=== PATIENT | male | born 1955 ===

== ENCOUNTER 2018-02-03 18:47 | Emergency (ER) | payer SELFPAY ==
[2018-02-03 19:07] VITALS: O2SAT 99
--- NOTE | 2018-02-03 20:21 | C.PDOC ---
History Of Present Illness 62 y/o male presents to the ER complaining of left anterior rib pain which began after he slipped in bathtub and hit his left rib on the toilet bowl. Patient denies having abdominal pain, SOB, head injury, and LOC. - HPI Time Seen by Provider: 02/03/18 19:18 Chief Complaint (Nursing): Trauma History Per: Patient History/Exam Limitations: no limitations Onset/Duration Of Symptoms: Hrs Severity: Moderate Past Medical History Reviewed: Historical Data, Nursing Documentation, Vital Signs Vital Signs: Last Vital Signs Temp 97.6 F 02/03/18 20:32 Pulse 70 02/03/18 20:32 Resp 18 02/03/18 20:32 BP 136/75 02/03/18 20:32 Pulse Ox 99 02/03/18 21:41 - Medical History PMH: HTN Other Surgeries: Hx of surgeries Family History: States: No Known Family Hx - Social History Hx Alcohol Use: No Hx Substance Use: No - Immunization History Hx Tetanus Toxoid Vaccination: No Hx Influenza Vaccination: No Hx Pneumococcal Vaccination: No Review Of Systems Except As Marked, All Systems Reviewed And Found Negative. Cardiovascular: Positive for: Other (left rib pain) Respiratory: Negative for: Shortness of Breath Gastrointestinal: Negative for: Abdominal Pain Physical Exam - Physical Exam Appears: Non-toxic, No Acute Distress Skin: Normal Color, Warm, Dry, Other ((-) hematoma) Head: Atraumatic, Normacephalic Eye(s): bilateral: Normal Inspection Nose: Normal Oral Mucosa: Moist Neck: Supple Chest: Symmetrical, Tenderness (tenderness to the left lower intercostal area anteriorly and the midaxillary line), Other ((-) crepitus) Cardiovascular: Rhythm Regular Respiratory: Normal Breath Sounds, No Rales, No Rhonchi, No Wheezing Extremity: Normal ROM Neurological/Psych: Oriented x3, Normal Speech ED Course And Treatment O2 Sat by Pulse Oximetry: 99 (RA) Pulse Ox Interpretation: Normal Progress Note: X-Ray- Chest and Left Ribs was negative. Patient refused pain meds and was discharged and instructed to follow up with PMD. Reassessment Condition: Improved Disposition Counseled Patient/Family Regarding: Diagnosis, Need For Followup - Disposition Disposition: HOME/ ROUTINE Disposition Time: 20:29 Condition: STABLE Additional Instructions: Today review of your Rib XR indicates no broken bones, after radiologist review You will be called if anything was missed from your XR reading Please follow up with PMD Apply ICE to area May take tylenol Extra Strength for pain Return to ER if worse Instructions: Bruised Rib (DC) Forms: [facility] (Guatemalan) - Clinical Impression Clinical Impression: Contusion of rib on left side - PA / [facility] / Resident Statement MD/DO has reviewed & agrees with the documentation as recorded. - Scribe Statement The provider has reviewed the documentation as recorded by the Tita Grimm Provider Attestation All medical record entries made by the Tita were at my direction and personally dictated by me. I have reviewed the chart and agree that the record accurately reflects my personal performance of the history, physical exam, medical decision making, and the department course for this patient. I have also personally directed, reviewed, and agree with the discharge instructions and disposition.
[2018-02-03 20:33] VITALS: BP 136/75; PULSE 70; RESP 18; TEMP 97.6
--- NOTE | 2018-02-04 09:43 | RAD ---
Date of service: 02/03/2018 PROCEDURE: Radiographs of the Chest and Left Ribs. HISTORY: pain, fall, hit left ribs COMPARISON: None available. TECHNIQUE: Frontal radiograph of the chest and multiple oblique radiographs of the left ribs were obtained. FINDINGS: LEFT RIBS: No fracture or focal lesion visualized. LUNGS: Clear. PLEURA: No pneumothorax or pleural fluid. CARDIOVASCULAR: Normal sized heart. No pulmonary vascular congestion. OTHER FINDINGS: None. IMPRESSION: Unremarkable radiographs of the chest and left ribs. No left rib fracture. Concordant results with the preliminary interpretation rendered by the emergency department physician procedure.
== END 2018-02-03 20:35 | disposition home or self-care (01) ==
LOC: C.ER 18:47
DX: S20.212A Contusion of left front wall of thorax, initial encounter (principal); W01.198A Fall on same level from slipping, tripping and stumbling with subsequent striking against other object, initial encounter